=== PATIENT | male | born 1960 | race African-American/Black ===

== ENCOUNTER 2020-07-30 11:59 | Emergency (ER) | payer OTHER, MEDICAID | END 2020-07-30 13:15 | LOC: NAV ERS 11:59 | DX: S16.1XXA Strain of muscle, fascia and tendon at neck level, initial encounter (principal); E11.9 Type 2 diabetes mellitus without complications; E78.5 Hyperlipidemia, unspecified; I10 Essential (primary) hypertension; V89.2XXA Person injured in unspecified motor-vehicle accident, traffic, initial encounter | CPT/HCPCS: 36415; 72125 ==